=== PATIENT | male | born 1965 | race Hispanic/Latino ===

== ENCOUNTER 2020-11-12 13:17 | Emergency (ER) | payer MEDICAID ==
[2020-11-12 13:44] LABS: APPEARANCE,URINE Clear (CLEAR); BILIRUBIN,URINE Negative (NEGATIVE); COLOR,URINE Yellow (YELLOW); GLUCOSE, URINE (UA) Negative (NEGATIVE); KETONES,URINE Negative (NEGATIVE); LEUKOCYTE ESTERASE ,URINE Negative (NEGATIVE); NITRATE,URINE Negative (NEGATIVE); OCCULT BLOOD,URINE Negative (NEGATIVE); PROTEIN,URINE Negative (NEGATIVE)
[2020-11-12] MEDS ORDERED: ONDANSETRON HCL 4 MG/2 ML VIAL ONE (13:44)
[2020-11-12] MEDS ORDERED: ACETAMINOPHEN EXTRA STRENGTH 500 MG TABLET ONE (13:45)
[2020-11-12] MEDS ORDERED: KETOROLAC TROMETHAMINE 30MG/ML ONE (13:45)
[2020-11-12] MEDS ORDERED: SODIUM CHLORIDE 0.9% 1000ML 1,000 ML IV ONE (13:45)
[2020-11-12 13:49] LABS: BASOPHILS % (AUTO) 0.4 % (0.0-5.0); EOSINOPHILS % (AUTO) 0.8 % (0.0-8.0); HEMATOCRIT 45.6 % (42-54); LYMPHOCYTES % (AUTO) 9.9 % (21.0-51.0); MEAN CORPUSCULAR HEMOGLOBIN 29.7 pg (27.0-33.0); MEAN CORPUSCULAR HGB CONC 33.8 g/dL (32.0-36.0); MEAN CORPUSCULAR VOLUME 87.9 fL (79-99); MONOCYTES % (AUTO) 7.4 % (3.0-13.0); NEUTROPHILS % (AUTO) 81.2 % (40.0-77.0); PLATELET COUNT (AUTO) 219 K/uL (130-400); RED BLOOD CELL COUNT(AUTO) 5.19 MIL/uL (4.50-6.20); RED CELL DISTRIBUTION WIDTH 12.6 % (11.0-15.5); WHITE BLOOD COUNT (AUTO) 7.3 K/uL (4.8-10.8)
[2020-11-12 13:58] LABS: POTASSIUM 4.1 mmol/L (3.5-5.1)
[2020-11-12 14:02] LABS: ALBUMIN 3.8 g/dL (3.5-5.0); BILIRUBIN,TOTAL 0.7 mg/dL (0.2-1.0); TOTAL PROTEIN, SERUM 7.6 g/dL (6.0-8.3)
== END 2020-11-12 15:00 | disposition home or self-care (01) ==
LOC: EDH 13:17
DX: R10.32 Left lower quadrant pain (principal); R11.0 Nausea; E11.9 Type 2 diabetes mellitus without complications; I10 Essential (primary) hypertension; F32.9 Major depressive disorder, single episode, unspecified; Z72.0 Tobacco use
CPT/HCPCS: 36415; 71045; 74176; 80053; 81003; 83605; 83690; 84484; 85025; 96361; 96374; 96375; 99285; J1885; J2405; J7030

== ENCOUNTER 2020-11-18 09:40 | Observation (INO) | payer MEDICAID ==
[~2020-11-18] VITALS: Ht 170.2 cm; Wt 88.0 kg
[2020-11-18] MEDS ORDERED: NITROGLYCERIN 1GM/1 INCH PACKET TD ONE (09:56)
[2020-11-18 10:03] LABS: BASOPHILS % (AUTO) 0.6 % (0.0-5.0); HEMATOCRIT 42.3 % (42-54); LYMPHOCYTES % (AUTO) 22.7 % (21.0-51.0); MEAN CORPUSCULAR HEMOGLOBIN 29.4 pg (27.0-33.0); MEAN CORPUSCULAR HGB CONC 33.8 g/dL (32.0-36.0); MONOCYTES % (AUTO) 9.1 % (3.0-13.0); NEUTROPHILS % (AUTO) 63.4 % (40.0-77.0); PLATELET COUNT (AUTO) 227 K/uL (130-400); RED BLOOD CELL COUNT(AUTO) 4.86 MIL/uL (4.50-6.20); RED CELL DISTRIBUTION WIDTH 12.3 % (11.0-15.5); WHITE BLOOD COUNT (AUTO) 8.2 K/uL (4.8-10.8)
[2020-11-18 10:16] LABS: INR 0.99 (0.85-1.15); PROTHROMBIN TIME 10.8 SEC (9.6-11.6)
[2020-11-18 10:17] LABS: ALBUMIN 3.4 g/dL (3.5-5.0); BILIRUBIN,TOTAL 0.4 mg/dL (0.2-1.0); CREATININE 0.7 mg/dL (0.5-1.5); PARTIAL THROMBOPLASTIN TIME 27.4 SEC (26.3-35.5); TOTAL PROTEIN, SERUM 6.7 g/dL (6.0-8.3)
[2020-11-18] MEDS ORDERED: DEXTROSE 50%-WATER 50 ML DISP.SYRIN IV PRN (12:00)
[2020-11-18] MEDS ORDERED: GLUCAGON 1MG KIT 1 MG ML IM PRN (12:00)
[2020-11-18] MEDS: IBUPROFEN 400 MG TABLET PO SCH ×2 (12:30→20:30)
[2020-11-18 13:16] LABS: APPEARANCE,URINE Clear (CLEAR); BILIRUBIN,URINE Negative (NEGATIVE); COLOR,URINE Yellow (YELLOW); GLUCOSE, URINE (UA) Negative (NEGATIVE); KETONES,URINE Negative (NEGATIVE); LEUKOCYTE ESTERASE ,URINE Negative (NEGATIVE); NITRATE,URINE Negative (NEGATIVE); OCCULT BLOOD,URINE Negative (NEGATIVE); PH,URINE 5.5 (5.0-8.0); PROTEIN,URINE Negative (NEGATIVE)
[2020-11-18 13:39] LABS: AMPHET/METH SCREEN,URINE NEGATIVE (NEGATIVE); BARBITURATE SCREEN, URINE NEGATIVE (NEGATIVE); BENZODIAZEPINES SCREEN,URINE NEGATIVE (NEGATIVE); CANNABINOID SCREEN,URINE NEGATIVE (NEGATIVE); COCAINE SCREEN,URINE NEGATIVE (NEGATIVE); OPIATE SCREEN,URINE NEGATIVE (NEGATIVE); PHENCYCLIDINE SCREEN,URINE NEGATIVE (NEGATIVE)
[2020-11-18] MEDS ORDERED: IBUPROFEN 400 MG TABLET ONE (17:50)
[2020-11-18 18:31] LABS: CREATINE KINASE, TOTAL 99 U/L (21-232); MYOGLOBIN 27 ng/mL (10-92); TROPONIN I < 0.04 ng/mL (0.00-0.06)
[2020-11-18] MEDS: METOPROLOL TARTRATE 25 MG TAB PO SCH (21:00)
[2020-11-18] MEDS: INSULIN R PO SS1 SQ SCH (21:00)
[2020-11-18] MEDS ORDERED: METOPROLOL TARTRATE 25 MG TAB ONE (21:06)
[2020-11-18] MEDS ORDERED: ATOR40TA71 PO (21:33)
[2020-11-18] MEDS ORDERED: LISI40TA9 PO (21:33)
[2020-11-18 21:45] VITALS: BP 151/82
[2020-11-18] MEDS ORDERED: ALBU8.5H8 PO (22:01)
[2020-11-18] MEDS ORDERED: OMEP40CA13 PO (22:01)
[2020-11-18] MEDS ORDERED: BUDE10.2 IH (22:01)
[2020-11-18 23:49] VITALS: BP 144/88
[2020-11-19 04:01] VITALS: BP 138/73
[2020-11-19] MEDS ORDERED: IBUPROFEN 400 MG TABLET ONE (05:07)
[2020-11-19 05:26] LABS: BASOPHILS % (AUTO) 0.8 % (0.0-5.0); EOSINOPHILS % (AUTO) 6.1 % (0.0-8.0); HEMATOCRIT 44.2 % (42-54); LYMPHOCYTES % (AUTO) 33.3 % (21.0-51.0); MEAN CORPUSCULAR HEMOGLOBIN 28.7 pg (27.0-33.0); MEAN CORPUSCULAR HGB CONC 32.4 g/dL (32.0-36.0); MEAN CORPUSCULAR VOLUME 88.6 fL (79-99); MONOCYTES % (AUTO) 10.6 % (3.0-13.0); PLATELET COUNT (AUTO) 239 K/uL (130-400); RED BLOOD CELL COUNT(AUTO) 4.99 MIL/uL (4.50-6.20); RED CELL DISTRIBUTION WIDTH 12.2 % (11.0-15.5); WHITE BLOOD COUNT (AUTO) 6.6 K/uL (4.8-10.8)
[2020-11-19] MEDS: IBUPROFEN 400 MG TABLET PO SCH (05:42)
[2020-11-19] MEDS: INSULIN R PO SS1 SQ SCH ×2 (05:43→11:17)
[2020-11-19 05:48] LABS: CREATININE 0.9 mg/dL (0.5-1.5)
[2020-11-19 08:31] VITALS: BP 126/68
[2020-11-19] MEDS ORDERED: ASPIRIN 81MG TAB.CHEW PO SCH (09:00)
[2020-11-19] MEDS: METOPROLOL TARTRATE 25 MG TAB PO SCH (09:23)
[2020-11-19 11:57] VITALS: BP 167/83
[2020-11-19] MEDS ORDERED: IBUP-2076 PO (12:09)
[2020-11-19] MEDS ORDERED: IBUPROFEN 400 MG TABLET PO PRN (12:15)
== END 2020-11-19 16:00 | disposition home or self-care (01) ==
LOC: EDH 09:40 → EDHIP 11:42 → 4DH 21:04
PROVIDERS: ADMIT Internal Medicine Nephrology; ATTEND Internal Medicine Nephrology
DX: R07.89 Other chest pain (principal); I20.9 Angina pectoris, unspecified; I10 Essential (primary) hypertension; E78.00 Pure hypercholesterolemia, unspecified; E11.9 Type 2 diabetes mellitus without complications; M19.90 Unspecified osteoarthritis, unspecified site; F32.9 Major depressive disorder, single episode, unspecified; F41.9 Anxiety disorder, unspecified; F17.200 Nicotine dependence, unspecified, uncomplicated; Z79.899 Other long term (current) drug therapy
CPT/HCPCS: 36415 ×2; 71045; 80048; 80053; 80305; 81003; 82465; 82550; 82948 ×4; 83874; 84484 ×2; 85025 ×2; 85610; 85730; 93005 ×3; 93306; 99285; G0378 ×27; 93356

== ENCOUNTER 2023-05-22 21:53 | Emergency (ER) | payer MEDICAID ==
[~2023-05-22] VITALS: Ht 170.2 cm; Wt 89.8 kg
[~2023-05-22 21:53] MED LIST: ALBU18HF7 IH; AMLO-258 PO; ASPI-1005 PO; ATOR40TA69 PO; BACL10TA PO; BUPR-113 PO; CLOP-31 PO; FAMO20TA8 PO; FLUT15.845 NS; GABA300C PO; HYDR-4068 PO; IPRA4AER IH; METF-446 PO; MONT-39 PO; SERT-439 PO
[2023-05-22 22:03] VITALS: BP 139/79; PULSE 71; RESP 20
[2023-05-22] MEDS ORDERED: CEFAZOLIN SODIUM 1 GM VIAL IVPB ONE (23:00)
[2023-05-22] MEDS ORDERED: LIDOCAINE HCL 1% 20 ML VIAL ONE (23:47)
[2023-05-23] MEDS ORDERED: AMOX1TAB16 PO (00:14)
[2023-05-23] MEDS ORDERED: IBUP-1493 PO (00:14)
[2023-05-23] MEDS ORDERED: DIPH,PERTUSS(ACELL),TET VAC/PF 0.5 ML VIAL IM ONE (00:30)
== END 2023-05-23 00:25 | disposition home or self-care (01) ==
LOC: EDH 21:53
DX: S62.624A Displaced fracture of middle phalanx of right ring finger, initial encounter for closed fracture (principal); S61.212A Laceration without foreign body of right middle finger without damage to nail, initial encounter; J45.909 Unspecified asthma, uncomplicated; E11.9 Type 2 diabetes mellitus without complications; E78.00 Pure hypercholesterolemia, unspecified; I10 Essential (primary) hypertension; F17.200 Nicotine dependence, unspecified, uncomplicated; Z79.02 Long term (current) use of antithrombotics/antiplatelets; Z79.51 Long term (current) use of inhaled steroids; Z79.82 Long term (current) use of aspirin; Z79.84 Long term (current) use of oral hypoglycemic drugs; Z79.899 Other long term (current) drug therapy; W22.8XXA Striking against or struck by other objects, initial encounter; Y93.89 Activity, other specified; Y92.89 Other specified places as the place of occurrence of the external cause; Y99.8 Other external cause status
CPT/HCPCS: 99284; 96365; 73140; 12002; J0690

== ENCOUNTER → 2024-04-14 | Outpatient (CLI) | payer MEDICAID ==
[~2024-04-14] MED LIST changes: +AMOX1TAB16 PO; +IBUP-1493 PO
[2024-04-14 14:48] LABS: BASOPHILS # (AUTO) 0.06 K/uL (0.00-0.20); BASOPHILS % (AUTO) 0.9 % (0.0-5.0); EOSINOPHILS # (AUTO) 0.29 K/uL (0.00-0.70); EOSINOPHILS % (AUTO) 4.2 % (0.0-8.0); HEMATOCRIT 43.3 % (42-54); IMMATURE GRANULOCYTE ABSOLUTE 0.02 K/uL (0-1); LYMPHOCYTES # (AUTO) 1.8 K/uL (1.0-4.8); LYMPHOCYTES % (AUTO) 25.4 % (21.0-51.0); MEAN CORPUSCULAR HEMOGLOBIN 29.1 pg (27.0-33.0); MEAN CORPUSCULAR HGB CONC 32.8 g/dL (32.0-36.0); MEAN CORPUSCULAR VOLUME 88.7 fL (79-99); MONOCYTES # (AUTO) 0.7 K/uL (0.1-1.0); MONOCYTES % (AUTO) 9.6 % (3.0-13.0); NEUTROPHILS # (AUTO) 4.2 K/uL (1.8-7.7); NEUTROPHILS % (AUTO) 59.6 % (40.0-77.0); PLATELET COUNT (AUTO) 220 K/uL (130-400); RED BLOOD CELL COUNT(AUTO) 4.88 MIL/uL (4.50-6.20)
[2024-04-14 15:07] LABS: ALBUMIN 3.9 g/dL (3.5-5.0); BILIRUBIN,TOTAL 0.6 mg/dL (0.2-1.0); POTASSIUM 4.3 mmol/L (3.5-5.1); TOTAL PROTEIN, SERUM 7.5 g/dL (6.0-8.3)
== END | disposition home or self-care (01) ==
LOC: LAB 13:46
PROVIDERS: ATTEND Internal Medicine Gastroenterology
DX: R10.31 Right lower quadrant pain (principal)
CPT/HCPCS: 36415; 80053; 85025

== ENCOUNTER → 2024-04-20 | Outpatient (CLI) | payer MEDICAID ==
[~2024-04-20] MED LIST changes: +IOHEXOL 350 MG/ML 100ML INFUS..BTL IV ONE
== END | disposition home or self-care (01) ==
LOC: RAH 10:21
PROVIDERS: ATTEND Internal Medicine Gastroenterology
DX: K57.30 Diverticulosis of large intestine without perforation or abscess without bleeding (principal); N32.89 Other specified disorders of bladder; M47.815 Spondylosis without myelopathy or radiculopathy, thoracolumbar region; R10.31 Right lower quadrant pain
CPT/HCPCS: 74177; Q9967

== ENCOUNTER → 2024-11-13 | Outpatient (CLI) | payer MEDICAID ==
[~2024-11-13] MED LIST changes: -IOHEXOL 350 MG/ML 100ML INFUS..BTL IV ONE
--- NOTE | 2024-11-13 14:05 | HMCIMG ---
NUCLEAR MEDICINE GASTRIC EMPTYING STUDY INDICATION: Abdominal distention RADIOPHARMACEUTICAL: Examination was performed with hard boiled egg, with 1.5 mCi 99 M technetium labeled sulfur colloid within. FINDINGS: Region of interest curves were drawn, and qualitatively, good gastric emptying noted with most of the radiotracer out of the stomach by the 90 minute neo. 50% emptying occurred at 89 minutes. IMPRESSION: Normal gastric emptying scan.
== END | disposition home or self-care (01) ==
LOC: RAH 10:38
PROVIDERS: ATTEND Internal Medicine Gastroenterology
DX: R14.0 Abdominal distension (gaseous) (principal); R68.81 Early satiety
CPT/HCPCS: 78264; A9541

== ENCOUNTER → 2024-12-25 | Outpatient (CLI) | payer MEDICAID ==
--- NOTE | 2024-12-25 10:43 | HMCIMG ---
ESOPHAGUS REASON: DYSPHAGIA. COMPARISON: None TECHNIQUE: Biphasic esophagram study was performed. FINDINGS: There is no obstruction to the antegrade passage of barium from mouth through stomach. A normal esophageal stripping with is seen. No evidence of ulceration or mass lesion is seen. No evidence of hiatal hernia is seen. There is gastroesophageal reflux into the level of the upper thoracic esophagus. IMPRESSION: Gastroesophageal reflux to the level of upper thoracic esophagus. No obstruction is seen.
== END | disposition home or self-care (01) ==
LOC: RAH 09:39
PROVIDERS: ATTEND Internal Medicine Gastroenterology
DX: K21.9 Gastro-esophageal reflux disease without esophagitis (principal); R13.10 Dysphagia, unspecified
CPT/HCPCS: 74220